=== PATIENT | male | born 1995 | race Two or more races ===

== ENCOUNTER 2017-06-26 20:41 | Emergency (ER) | payer MEDICAID ==
[2017-06-26 20:54] VITALS: BP 137/89
[2017-06-26 21:18] LABS: Urine Bilirubin Negative (Negative); Urine Blood Negative /uL (Negative); Urine Color Yellow (Yellow); Urine Glucose Normal (Normal); Urine Ketone Negative (Negative); Urine Nitrite Negative (Negative); Urine RBC <1 /hpf (0 - 3); Urine Urobilinogen Normal (Negative); Urine pH 6.5 (5.0-8.0)
[2017-06-26 22:03] LABS: Albumin 3.8 g/dL (3.4-5.0); Anion Gap 6 (5-15); Aspartate Aminotransferase 16 U/L (15-37); Blood Urea Nitrogen 8 mg/dL (7-18); Calcium 8.7 mg/dL (8.5-10.1); Carbon Dioxide 28 mmol/L (21-32); Chloride 106 mmol/L (98-107); GFR African American 120 mL/min; GFR Non-African American 99 mL/min; Glucose 98 mg/dL (74-106); Sodium 140 mmol/L (136-145)
[2017-06-26 22:08] LABS: Alkaline Phosphatase 104 U/L (45-117); Bilirubin, Total 0.2 mg/dL (0.2-1.0); Total Protein 7.5 g/dL (6.4-8.2)
[2017-06-26 22:24] LABS: Basophils # (auto) 0 uL; Basophils % (auto) 0.3 % (0.0-2.0); Eosinophils # (auto) 0.1 uL; Eosinophils % (auto) 1.9 % (0.0-7.0); Hematocrit 49.3 % (41.0-53.0); Hemoglobin 16.8 g/dL (13.5-17.5); Lymphocytes # (auto) 1.1 uL; Mean Corpuscular Hemoglobin 30.5 pg (28.0-32.0); Mean Corpuscular Hgb Conc. 34.1 g/dL (32.0-36.0); Mean Corpuscular Volume 89.5 fL (80.0-100.0); Mean Platelet Volume 8.6 fL (6.9-10.8); Monocytes # (auto) 0.7 uL; Neutrophils % (auto) 74.8 % (37.0-80.0); Platelet Count (auto) 225 10^3/uL (140-450)
== END 2017-06-27 01:40 | disposition left against medical advice (07) ==
LOC: ER 20:46
DX: R53.1 Weakness (principal); Z53.21 Procedure and treatment not carried out due to patient leaving prior to being seen by health care provider
CPT/HCPCS: 36415; 71020; 74176; 80053; 81001; 84484; 85025

== ENCOUNTER 2017-06-27 11:06 | Emergency (ER) | payer MEDICAID ==
[~2017-06-27] VITALS: Ht 190.5 cm; Wt 90.7 kg
[2017-06-27 11:50] VITALS: BP 141/89
== END 2017-06-27 12:33 | disposition home or self-care (01) ==
LOC: ER 11:06
DX: R19.7 Diarrhea, unspecified (principal)

== ENCOUNTER 2024-07-05 09:22 | Emergency (ER) | payer MEDICAID ==
[~2024-07-05] VITALS: Ht 193 cm; Wt 127.4 kg
[2024-07-05 10:08] VITALS: TEMP 98
[2024-07-05 10:59] LABS: Basophils # (auto) 0 10 ^3/uL (0-0.2); Basophils % (auto) 0.5 % (0.0-2.0); Eosinophils # (auto) 0.1 10 ^3/uL (0-0.8); Eosinophils % (auto) 1.9 % (0.0-7.0); Hematocrit 45.8 % (41.0-53.0); Hemoglobin 16.1 g/dL (13.5-17.5); Lymphocytes # (auto) 2.3 10 ^3/uL (0.4-5.4); Lymphocytes % (auto) 31.2 % (10.0-50.0); Mean Corpuscular Hemoglobin 30.8 pg (28.0-32.0); Mean Corpuscular Hgb Conc. 35.1 g/dL (32.0-36.0); Mean Corpuscular Volume 87.8 fL (80.0-100.0); Monocytes # (auto) 0.4 10 ^3/uL (0-1.3); Monocytes % (auto) 5.8 % (0.0-12.0); Neutrophils # (auto) 4.4 10 ^3/uL (1.6-8.6); Neutrophils % (auto) 60.6 % (37.0-80.0); Nucleated Red Blood Cells % 0.1 %; Platelet Count (auto) 264 10^3/uL (140-450); Red Blood Cells 5.21 10^6/uL (4.5-5.90); Red Cell Distribution Width 13.3 % (11.8-14.3); White Blood Cell 7.2 10^3/uL (4.4-10.8)
[2024-07-05 11:14] LABS: Alanine Aminotransferase 81 U/L (7-40); Albumin 4.7 g/dL (3.2-4.8); Alkaline Phosphatase 81 U/L (46-116); Anion Gap 6 (5-15); Aspartate Aminotransferase 44 U/L (13-40); BUN/Creatinine Ratio 10.8 (10.0-20.0); Blood Urea Nitrogen 9 mg/dL (9-23); Calcium 10.2 mg/dL (8.7-10.4); Carbon Dioxide 28 mmol/L (20-31); Chloride 106 mmol/L (98-107); Glucose 85 mg/dL (74-106); Potassium 4.3 mmol/L (3.5-5.1); Sodium 140 mmol/L (136-145)
[2024-07-05 11:15] LABS: Bilirubin, Total 0.6 mg/dL (0.2-1.0); Total Protein 7.7 g/dL (5.7-8.2)
[2024-07-05] MEDS ORDERED: LEVO500T91 PO (13:22)
[2024-07-05] MEDS ORDERED: POLY335015 PO (13:22)
[2024-07-05 13:26] VITALS: BP 137/90; PULSE 63; RESP 16; O2SAT 64
[2024-07-05] MEDS: levoFLOXacin 500 MG TAB PO ONE (13:52)
== END 2024-07-05 13:56 | disposition home or self-care (01) ==
LOC: ER 09:22
DX: K59.00 Constipation, unspecified (principal); K92.1 Melena
CPT/HCPCS: 36415; 74176; 80053; 85025